=== PATIENT | male | born 1945 | race Caucasian/White ===

== ENCOUNTER → 2021-04-30 | Outpatient (CLI) | payer OTHER | END | disposition home or self-care (01) | LOC: LABPAT 09:40 | PROVIDERS: ATTEND Orthopaedic Surgery | DX: Z01.812 Encounter for preprocedural laboratory examination (principal); M16.11 Unilateral primary osteoarthritis, right hip; Z22.322 Carrier or suspected carrier of Methicillin resistant Staphylococcus aureus | CPT/HCPCS: 87070 ==

== ENCOUNTER 2021-05-07 13:50 | Day surgery (SDC) | payer OTHER ==
[2021-05-03 11:50] VITALS: BMI 35.9
--- NOTE | 2021-05-06 12:13 | HP ---
HISTORY AND PHYSICAL DATE OF SURGERY: 05/07/2021 HISTORY OF PRESENT ILLNESS: Jason Snyder is a 75-year-old gentleman seen with symptomatic right hip osteoarthritis. We discussed options for treatment. He elected to proceed with right total hip arthroplasty. Consent was obtained. Medical clearance was provided by Dr. Stephens. PAST MEDICAL HISTORY: Atrial fibrillation, hyperlipidemia, hypertension. PAST SURGICAL HISTORY: Vasectomy. DAILY MEDICATIONS: Lisinopril, pravastatin, triamcinolone, Valium. ALLERGIES: PENICILLIN. SOCIAL HISTORY: Denies tobacco use. PHYSICAL EXAMINATION: Evaluation of the right hip, there is diffuse tenderness, very limited range of motion, severe pain. Hip impingement sign is positive. Straight leg raise is negative. His distal neurovascular exam is intact. RADIOGRAPHS: Right hip radiographs revealed severe osteoarthritic changes. IMPRESSION: 1. Right hip osteoarthritis. 2. Atrial fibrillation. 3. Hypertension. PLAN: Direct anterior right total hip arthroplasty. MMODL / IJN: [id number] /
[~2021-05-07 13:50] MED LIST: ACETAMINOPHEN TAB 500 MG TAB PO PRN; HYDROmorphone 0.5 MG/0.5 ML SYRINGE IVP PRN; LIDOCAINE 1% (10MG/ML) FOR IV START INTRADERMA PRN; MELOXICAM 7.5 MG TAB PO PRN; MIDAZOLAM 2 MG/2 ML VIAL IV PRN; ONDANSETRON 4 MG/2 ML VIAL IVP PRN; TRANEXAMIC ACID 1,000 MG in SODIUM CHLORIDE 0.9% 100 ML IVPB PRN; ceFAZolin 3 GM in SODIUM CHLORIDE 0.9% 100 ML IVPB PRN
[2021-05-07] MEDS: LACTATED RINGERS 1,000 ML IV SCH ×3 (14:48→20:52)
[2021-05-07] MEDS: DEXAMETHASONE SOD PHOSPHATE 4 MG/ML 1 ML VIAL IV ONE ×2 (14:59→23:34)
[2021-05-07] MEDS: ONDANSETRON 4 MG/2 ML VIAL IVP ONE ×2 (15:00→21:11)
[2021-05-07] MEDS ORDERED: MIDAZOLAM 2 MG/2 ML VIAL ONE (16:22)
[2021-05-07] MEDS ORDERED: fentaNYL (PF) 50 MCG/ML 2 ML AMP ONE (16:22)
[2021-05-07] MEDS ORDERED: PROPOFOL 10 MG/ML 20 ML VIAL IV ONE (16:22)
[2021-05-07] MEDS ORDERED: SODIUM CHLORIDE 0.9% 100 ML BAG ONE (16:22)
[2021-05-07] MEDS ORDERED: TRANEXAMIC ACID 1,000 MG/10 ML VIAL ONE (16:22)
[2021-05-07] MEDS ORDERED: ePHEDrine SULFATE/0.9% NACL/PF 50 MG/5 ML SYRINGE IV ONE (16:22)
[2021-05-07] MEDS ORDERED: ceFAZolin 1,000 MG in SODIUM CHLORIDE 0.9% 1,000 ML IRRIGATION ONE (16:56)
[2021-05-07] MEDS: ROPIVACAINE/EPI/CLONIDINE/KET 50 ML SYRINGE MISCELLANE PRN ×2 (16:57→17:50)
--- NOTE | 2021-05-07 18:07 | XR ---
EXAMINATION TYPE: XR Hip Limited RT DATE OF EXAM: 05/07/2021 COMPARISON: NONE HISTORY: Hip surgery TECHNIQUE: Single view FINDINGS: 18 seconds of fluoroscopy time was recorded. A single fluoroscopic image was obtained of th e right hip that shows hip prosthesis in anatomic position. IMPRESSION: No complicating process seen.
[2021-05-07] MEDS ORDERED: NALOXONE 0.4 MG/ML 1 ML VIAL IV PRN (18:14)
[2021-05-07] MEDS ORDERED: HYDROmorphone 0.5 MG/0.5 ML SYRINGE IVP PRN ×2 (18:14)
[2021-05-07] MEDS ORDERED: ONDANSETRON 4 MG/2 ML VIAL IVP PRN (18:14)
[2021-05-07] MEDS ORDERED: HYDROmorphone 0.2 MG/1 ML SYRINGE IVP PRN (18:14)
[2021-05-07] MEDS ORDERED: HYDROcodone/APAP 5-325MG 1 EACH TAB PO PRN (18:14)
--- NOTE | 2021-05-07 18:14 | P.OP ---
Date of Procedure: 05/07/21 Preoperative Diagnosis: Right hip osteoarthritis Postoperative Diagnosis: Right hip osteoarthritis Procedure(s) Performed: Direct anterior right total hip arthroplasty Implants: 1. Depuy [place] size 14 135 standard collared press-fit femoral stem 2. Depuy [place] 60 mm multi hole press-fit acetabular shell 3. Depuy [place] neutral polyethylene acetabular liner 36 mm ID 60 mm OD 4. Biolox delta ceramic femoral head +5 36 mm Anesthesia: local, spinal Surgeon: Óscar Santiago Clerk Stenographer #1: Davide Scott Estimated Blood Loss (ml): 95 Pathology: other (Femoral head) Condition: stable Indications for Procedure: 75-year-old gentleman seen with symptomatic right hip osteoarthritis. After treatment options were discussed, he elected to proceed with direct anterior right total hip arthroplasty. Operative Findings: See description of procedure Description of Procedure: The patient was taken to the operative suite. Patient underwent a spinal anesthetic by the department of anesthesia. Patient was then transferred to the [place] table. Patient was given preoperative IV antibiotics and TXA. Both lower extremities were placed in standard leg spars. The hip was then prepped and angelique ped in the normal sterile orthopedic fashion. A standard anterior incision was made beginning 3 cm lateral and 1 cm distal to the ASIS extending 10 cm. Dissection was then carried down through the subcutaneous soft tissues down to the fascia overlying the tensor fascia zhen. An incision was now made through the fascia. Careful dissection was taken down exposing the tensor fascia zhen muscle. A Cobra retractor was now placed along the medial femoral neck and a second one along the lateral femoral neck. The venous circumflex vessels were now identified, cauterized and clipped. We identified the anterior hip capsule. An incision was made through the hip capsule along the lateral border. I performed a partial anterior capsulectomy. Retractors were now placed around the femoral neck itself. A femoral neck cut was now made with a sagittal saw. It was completed with an osteotome at the lateral neck area. The femoral head was now removed without difficulty. The extremity was now rotated to 60 of external rotation. It was locked in position. Residual labrum was now debrided out. Serial reaming was performed of the acetabulum while Nickolas MURPHY assisted holding an anterior retractor for exposure. Once we reached the appropriate size and a trial was position and fit nicely. The appropriate size was now chosen opened and made available. It was introduced into the acetabulum without difficulty. The C-arm/fluoroscopy was now brought into the operative field. We made sure we had a true AP pelvic view. We now under direct C- arm/fluoroscopy introduced into the acetabular component with appropriate version and inclination. I held the cup in appropriate position well Nickolas MURPHY used a mallet to seat the acetabular component. I noted the component now to be well seated and stable. Acetabular cup introduce her was removed. The C-arm was pulled back. An appropriate liner was introduced and clicked into position. It was felt to be stable. At this point retractors were removed. The extremity was now placed into 140 external rotation with no traction. The leg was now dropped to the ground and adducted. Appropriate retractors were now positioned along the proximal femur. We also placed our femoral look into position. Additional capsular releasing was performed to gain access to the proximal femur. We now used a box osteotome. A canal finder was now utilized. Serial broaching was now performed with the assistance of Nickolas MURPHY tapping the broaches down with a mallet while held the broach in appropriate rotation and position. This was done until we reached the appropriate size with good overall rotational stability. Appropriate calcar planing was performed. A trial head/neck was placed into position. The hip was now reduced. The C- arm/fluoroscopy was brought back into the operative field. I obtained an AP pelvis demonstrate a reasonable leg length alignment. The trial components appear to be well-positioned and appropriately sized. The C-arm/fluoroscopy was pulled back. Retractors were repositioned and the hip was dislocated. The leg was again taken down to the ground and adducted. Appropriate retractors were repositioned as well as the femoral hook. All trial components were removed. The femoral implant was opened along with the femoral head. The femoral implant was introduced on the appropriate handle into our pre-broached area. I held the component position well Nickolas MURPHY used a mallet to seat the femoral component. The femoral component was now noted to be well seated and stable.. The femoral head was introduced with good positioning and fixation noted. Retractors were now removed. The hip was now reduced. There appeared be good positioning of the hip confirmed on intraoperative fluoroscopy. Spot films were obtained to document this. A second gram of TXA was given. The deep and superficial soft tissues were infiltrated with local analgesic. Bipolar cautery had been utilized intermittently through the procedure for hemostasis. The wound was irrigated copiously with pulse lavage mechanical irrigation. The fascia was repaired with Vicryl suture. The subcutaneous soft tissues were repaired in layers with Vicryl suture. The skin was approximated with pernio/Dermabond. Sterile dressings were applied. Patient was then awakened, transferred to a bed and taken to recovery in stable condition. Nickolas MURPHY assisted with the complex procedure.
[2021-05-07 18:30] VITALS: RESP 16
[2021-05-07] MEDS ORDERED: SODIUM CHLORIDE 0.9% 1,000 ML IV ONE (18:57)
[2021-05-07] MEDS ORDERED: SENNOSIDES-DOCUSATE SODIUM 1 EACH TAB PO SCH (21:00)
[2021-05-07] MEDS: HYDROcodone/APAP 5-325MG 1 EACH TAB PO PRN (21:10)
[2021-05-08] MEDS: ceFAZolin 3 GM in SODIUM CHLORIDE 0.9% 100 ML IVPB SCH ×2 (00:09→09:45)
--- NOTE | 2021-05-08 00:14 | P.CONS ---
History of Present Illness - Reason for Consult Consult date: 05/08/21 - History of Present Illness Patient is a 74-year-old male with a PMH of A. fib not on anticoagulation, hypertension, hyperlipidemia, and BPH who was admitted to the hospital for an elective right total hip replacement. The patient underwent the procedure uneventfully earlier today and was seen postoperatively on the surgical unit. There were no immediate postoperative complications reported. Patient was seen at the bedside and notes continued 5 out of 5 right hip pain. He has not been out of bed yet and hadn't passed flatus or urine. He reported mild bilateral lower extremity tingling. Denied visual complaints. He denied chest discomfort, she was with, fever, cough, sore throat. Denied abdominal pain, nausea, vomiting, diarrhea. He reports compliance with his medications at home. Review of systems: Pertinent positives and negatives as discussed in HPI, a complete review of systems was performed and all other systems are negative. Physical examination: General: non toxic, no distress, appears at stated age, obese Derm: no unusual rashes/lesions no unusual ecchymoses, warm, dry Head: atraumatic, normocephalic, symmetric Eyes: EOMI, no lid lag, anicteric sclera, pupils equal round reactive to light ENT: Nose and ears atraumatic, no thrush, no pharyngeal erythema Neck: No thyromegaly, no cervical lymphadenopathy, trachea midline, supple Mouth: no lip lesion, mucus membranes moist Cardiovascular: S1S2 reg, no murmur, positive posterior tibial pulse bilateral, no edema, capillary refill less than 2 seconds Lungs: CTA bilateral, no rhonchi, no rales , no accessory muscle use Abdominal: soft, nontender to palpation, no guarding, no appreciable organomegaly, normal bowel sounds Ext: no gross muscle atrophy, muscle strength 5 out of 5 in all extremities grossly except right lower extremity postoperatively, right lower extremity distal strength 5 out of 5 no contractures Neuro: CN II-XI grossly intact, light touch intact all 4 extremities, finger to nose within normal limits, Psych: Alert, oriented, appropriate affect Assessment/plan Chronic conditions: Hypertension, hyperlipidemia, BPH, paroxysmal A. 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 Past Anesthesia/Blood Transfusion Reactions: Motion Sickness Smoking Status: Former smoker - Past Family History Mother Family Medical History: Hypertension Medications and Allergies Home Medications Medication Instructions Recorded Confirmed Type Acetaminophen [Tylenol Arthritis] 650 mg PO DIRECTED PRN 05/03/21 05/07/21 History Ascorbic Acid [Vitamin C] 500 mg PO DAILY 05/03/21 05/07/21 History Cholecalciferol [Vitamin D3 (25 25 mcg PO DAILY 05/03/21 05/07/21 History Mcg = 1000 Iu)] Diltiazem HCl [Diltiazem HCl 24Hr 180 mg PO DAILY 05/03/21 05/07/21 History ER (CD)] Finasteride [Proscar] 5 mg PO DAILY 05/03/21 05/07/21 History Glucos Sul 2Kcl/MSM/Chond/C/Mn 1 each PO BID 05/03/21 05/07/21 History [Glucosamine Chondroitin Cap] Ibuprofen 600 mg PO BID PRN 05/03/21 05/07/21 History Magnesium 250 mg PO BID 05/03/21 05/07/21 History Multivitamins, Thera [Multivitamin 1 tab PO DAILY 05/03/21 05/07/21 History (formulary)] Potassium Gluconate 99 mg PO BID 05/03/21 05/07/21 History Pravastatin Sodium [Pravachol] 80 mg PO HS 05/03/21 05/07/21 History Sildenafil Citrate [Viagra] 25 mg PO DIRECTED PRN 05/03/21 05/07/21 History Tamsulosin HCl [Flomax] 0.8 mg PO DAILY 05/03/21 05/07/21 History Turmeric Root Extract [Turmeric] 500 mg PO DAILY 05/03/21 05/07/21 History Vitamin E (Dl,Tocopheryl Acet) 400 unit PO DAILY 05/03/21 05/07/21 History [Vitamin E (400 Iu = 180 mg)] lisinopriL [Zestril] 5 mg PO DAILY 05/03/21 05/07/21 History Allergies Allergy/AdvReac Type Severity Reaction Status Date / Time Penicillins Allergy Itching Verified 05/07/21 14:11 antibiotic-can not remember Allergy Unknown Uncoded 05/07/21 14:11 name Physical Exam Vitals: Vital Signs Temp Pulse Pulse Resp BP Pulse Ox 05/07/21 19:15 68 16 122/59 98 05/07/21 19:01 69 16 111/55 98 05/07/21 18:45 66 16 115/53 98 05/07/21 18:33 91 16 117/59 98 05/07/21 18:26 97 F L 85 16 119/58 98 05/07/21 14:21 97.3 F L 77 20 140/69 94 L Intake and Output 05/07/21 05/07/21 05/07/21 06:59 14:59 22:59 Intake Total 1051 Output Total 95 Balance 956 Intake: IV 1051 Output: Estimated Blood Loss 95 Other: Weight 124.9 kg
[2021-05-08] MEDS ORDERED: PRAVASTATIN SODIUM 80 MG TAB PO SCH (00:15)
[2021-05-08] MEDS: HYDROcodone/APAP 5-325MG 1 EACH TAB PO PRN ×2 (03:15→09:44)
[2021-05-08] MEDS: LACTATED RINGERS 1,000 ML IV SCH ×2 (07:15→09:02)
[2021-05-08 07:45] VITALS: BP 136/74; PULSE 74; TEMP 98.3
--- NOTE | 2021-05-08 08:08 | FL ---
Fluoroscopy INDICATION: Pain FINDINGS: Fluoroscopy time: 18 seconds. Images obtained: 1. IMPRESSIONS: 1. Documentation of fluoroscopy.
[2021-05-08] MEDS ORDERED: MELOXICAM 7.5 MG TAB PO SCH (09:00)
[2021-05-08] MEDS ORDERED: FAMOTIDINE 20 MG TAB PO SCH (09:00)
[2021-05-08] MEDS ORDERED: DILTIAZEM CD 180 MG CAP.ER.24H PO SCH (09:00)
[2021-05-08] MEDS ORDERED: FINASTERIDE 5 MG TAB PO SCH (09:00)
[2021-05-08] MEDS ORDERED: TAMSULOSIN 0.4 MG CAP.ER.24H PO SCH (09:00)
[2021-05-08] MEDS ORDERED: ENOXAPARIN 40 MG/0.4 ML SYRINGE SQ SCH (09:00)
[2021-05-08] MEDS ORDERED: lisinopriL 5 MG TAB PO SCH (09:00)
--- NOTE | 2021-05-08 09:41 | P.PN ---
Subjective Progress Note Date: 05/08/21 Principal diagnosis: hip pain Patient is a 74-year-old male with a past medical history of paroxysmal A. fib, currently maintained in normal sinus rhythm and no longer requires anticoagulation, dyslipidemia, and BPH was admitted to the hospital for elective right total hip replacement. He tolerated the procedure well without any immediate postoperative complications. Patient seen and examined at bedside. He has been up and walking this morning and doing well. He is anxious to go home. He denies any chest pain, shortness breath, nausea, or vomiting. General: non toxic, no distress, appears at stated age Derm: warm, dry Head: atraumatic, normocephalic, symmetric Eyes: EOMI, no lid lag, anicteric sclera Mouth: no lip lesion, mucus membranes moist Cardiovascular: S1S2 reg, no murmur, positive posterior tibial pulse bilateral, Lungs: CTA bilateral, no rhonchi, no rales , no accessory muscle use Abdominal: soft, nontender to palpation, no guarding, no appreciable organomegaly Ext: no gross muscle atrophy, trace edema, no contractures Neuro: CN II-XI grossly intact, no focal neuro deficits Psych: Alert, oriented, appropriate affect Patient is a 75-year-old male status post right total hip replacement by orthopedic surgery Hypertension -controlled -Continue with Cardizem and lisinopril Dyslipidemia -Continue statin Paroxysmal A. fib currently maintained in normal sinus rhythm not on chronic anticoagulation -Continue with Cardizem -DVT prophylaxis as deemed appropriate per orthopedic surgery as patient is not on long-term anticoagulation. BPH -Flomax Thank you for allowing us to proceed care of this patient. Patient is medically optimized for discharge at the discretion of orthopedic surgery if hemoglobin comes back greater than 9. Med rec has been addressed. Objective - Vital Signs Vital signs: Vital Signs Temp 98.3 F 05/08/21 07:44 Pulse 74 05/08/21 07:44 Resp 16 05/08/21 07:44 BP 136/74 05/08/21 07:44 Pulse Ox 95 05/08/21 07:44 Intake & Output 05/07/21 05/08/21 05/08/21 18:59 06:59 18:59 Intake Total 1051 Output Total 95 500 Balance 956 -500 Weight 124.9 kg Intake: IV 1051 Output: Urine 500 Estimated Blood Loss 95 Other: Voiding Method Toilet # Voids 1
--- NOTE | 2021-05-08 12:16 | P.DS ---
Providers Date of admission: 05/07/2021 Expected date of discharge: 05/08/21 Attending physician: Óscar Santiago Consults: 05/07/21 18:14 Consult Physician Routine Consulting Provider: Lyric Cordero Consult Reason/Comments: Medical management Do you want consulting provider notified?: Yes Primary care physician: Serafin Stephens MD Hospital Course: Date of admission: 05/07/2021 Date of discharge: 05/08/2021 Admission diagnosis: Right hip osteoarthritis Discharge diagnosis: Same Attending physician: Dr. Santiago Surgical procedures: Right total hip arthroplasty Brief history: Patient is a 75-year-old male with a history of progressive primary right hip osteoarthritis. At this point patient has failed conservative treatment measures and has opted to proceed with a elective right total hip arthroplasty. Hospital course: Details of patient's surgery can be found in operative report. Patient tolerated the procedure well and was subsequently transported to orthopedic floor. Patient's orthopeidc and medical care was provided daily. Patient had daily laboratory tests performed for evaluation of overall blood co unts . Patient had daily physical therapy to include strengthening range of motion as well as education with walker ambulation. Patient was treated with Lovenox for their postoperative DVT prophylaxis during their inpatient stay. Patient was noted to have a relatively uneventful postoperative course. Patient reported satisfactory pain control with oral pain medications by postoperative day 1. Patient showed satisfactory progress with physical therapy. Patient moved steadily through the program and had no difficulty meeting the goals by postoperative day 1. Given patient's otherwise satisfactory course and having met physical therapy goals, plan is to discharge patient home on postoperative day 1. Discharge condition/disposition: Patient will be discharged home in stable condition. Discharge medications: Instructions are given on resumption of patient's normal daily medications per primary care recommendation, in addition patient will be prescribed Lyrica 75 mg; Aspirin 81 mg BID; Colace. Discharge instructions: 1. Wound care and infection precautions keep incision dry and covered while showerig, no lotions, creams, moisturizers. No soaking, tubs, pools, hottubs. Do not scrub over the incision. 2. Weight-king [as toleratd] with walker / cane until follow-up. 3. Ice and elevate when necessary. Do not exceed 20 minutes per hour with ice pack. 4. Utilize compression sleeve until seen at first follow up appointment. 5. Visiting nursing care. 6. Home physical therapy. 7. Pain meds and anticoagulants per prescription. 8. Pain medication has potential to cause constipation. Increase oral fluid and fiber intake. Contact primary care provider if you have not had a bowel movement within 48 hours after discharge 9. No anti-inflammatory medication until discussed at first post operative visit, this including Motrin, Aleve, Mobic, Diclofenac. 10. Follow up in office at 2 weeks postop with Nickolas Scott PA-C / Jt Sol PA-C 11. Follow up with your primary care doctor 7-10 days after discharge. 12. Contact [facility] with any questions, . Assessment: Right hip osteoarthritis Procedures: Right total hip arthroplasty Patient Condition at Discharge: Good Plan - Discharge Summary Discharge Rx Participant: Yes New Discharge Prescriptions: New Docusate [Colace] 100 mg PO DAILY #30 capsule Aspirin [Adult Low Dose Aspirin EC] 81 mg PO BID #60 tablet. Pregabalin [Lyrica] 75 mg PO BID #21 cap No Action Finasteride [Proscar] 5 mg PO DAILY Diltiazem HCl [Diltiazem HCl 24Hr ER (CD)] 180 mg PO DAILY Glucos Sul 2Kcl/MSM/Chond/C/Mn [Glucosamine Chondroitin Cap] 1 each PO BID Vitamin E (Dl,Tocopheryl Acet) [Vitamin E (400 Iu = 180 mg)] 400 unit PO DAILY Turmeric Root Extract [Turmeric] 500 mg PO DAILY Ascorbic Acid [Vitamin C] 500 mg PO DAILY Ibuprofen 600 mg PO BID PRN PRN Reason: Pain Tamsulosin HCl [Flomax] 0.8 mg PO DAILY Pravastatin Sodium [Pravachol] 80 mg PO HS lisinopriL [Zestril] 5 mg PO DAILY Sildenafil Citrate [Viagra] 25 mg PO DIRECTED PRN PRN Reason: erectile dysfunction Multivitamins, Thera [Multivitamin (formulary)] 1 tab PO DAILY Potassium Gluconate 99 mg PO BID Magnesium 250 mg PO BID Cholecalciferol [Vitamin D3 (25 Mcg = 1000 Iu)] 25 mcg PO DAILY Acetaminophen [Tylenol Arthritis] 650 mg PO DIRECTED PRN PRN Reason: Pain Discharge Medication List Acetaminophen [Tylenol Arthritis] 650 mg PO DIRECTED PRN 05/03/21 [History] Ascorbic Acid [Vitamin C] 500 mg PO DAILY 05/03/21 [History] Cholecalciferol [Vitamin D3 (25 Mcg = 1000 Iu)] 25 mcg PO DAILY 05/03/21 [History] Diltiazem HCl [Diltiazem HCl 24Hr ER (CD)] 180 mg PO DAILY 05/03/21 [History] Finasteride [Proscar] 5 mg PO DAILY 05/03/21 [History] Glucos Sul 2Kcl/MSM/Chond/C/Mn [Glucosamine Chondroitin Cap] 1 each PO BID 05/03/21 [History] Ibuprofen 600 mg PO BID PRN 05/03/21 [History] Magnesium 250 mg PO BID 05/03/21 [History] Multivitamins, Thera [Multivitamin (formulary)] 1 tab PO DAILY 05/03/21 [History] Potassium Gluconate 99 mg PO BID 05/03/21 [History] Pravastatin Sodium [Pravachol] 80 mg PO HS 05/03/21 [History] Sildenafil Citrate [Viagra] 25 mg PO DIRECTED PRN 05/03/21 [History] Tamsulosin HCl [Flomax] 0.8 mg PO DAILY 05/03/21 [History] Turmeric Root Extract [Turmeric] 500 mg PO DAILY 05/03/21 [History] Vitamin E (Dl,Tocopheryl Acet) [Vitamin E (400 Iu = 180 mg)] 400 unit PO DAILY 05/03/21 [History] lisinopriL [Zestril] 5 mg PO DAILY 05/03/21 [History] Aspirin [Adult Low Dose Aspirin EC] 81 mg PO BID #60 tablet. 05/08/21 [Rx] Docusate [Colace] 100 mg PO DAILY #30 capsule 05/08/21 [Rx] Pregabalin [Lyrica] 75 mg PO BID #21 cap 05/08/21 [Rx] Follow up Appointment(s)/Referral(s): [facility], [NON-STAFF] - ([facility] will call you to arrange the time for your first visit on 05/09/21.) Davide Scott PAC [PHYSICIAN NEEDLE MAKER] - 2 Weeks Activity/Diet/Wound Care/Special Instructions: Orthopedic Discharge Instructions: 1. Wound care and infection precautions, keep incision dry and covered while showering, no lotions, creams, moisturizers. No soaking, pools, hot tubs. Do not scrub over incision. 2. Weight-bear as tolerated with walker / cane until follow-up. 3. Ice and elevate when necessary. Do not exceed 20 minutes per hour with ice pack. 4. Utilize compression sleeve until seen at first follow up appointment. 5. Pain meds and anticoagulants per prescription. 6. Pain medication has potential to cause constipation. Increase oral fluid and fiber intake. Contact primary care provider if you have not had a bowel movement within 48 hours after discharge. 7. No anti-inflammatory medication until discussed at first post operative visit, this including Motrin, Aleve, Mobic, Diclofenac. 8. Follow up in office at 2 weeks postop with Nickolas Scott PA-C / Jt Sol PA-C 9. Follow up with your primary care doctor 7-10 days after discharge. 10. Contact [facility] with any questions, . Please keep silver foam dressing on for 7-10 days. While showering, use Saran wrap on dressing. Dressing may be removed after 7-10 days. Discharge Disposition: HOME WITH HOME HEALTH SERVICES
[2021-05-08 12:53] LABS: Basophils # (A) 0.01 X 10*3/uL (0.00-0.10); Basophils % (A) 0.1 %; Eosinophils # (A) 0 X 10*3/uL (0.04-0.35); Eosinophils % (A) 0 %; HCT 37.4 % (39.6-50.0); HGB 12.6 g/dL (13.0-17.0); Lymphocytes # (A) 0.55 X 10*3/uL (0.90-5.00); Lymphocytes % (A) 4.2 %; MCH 32.9 pg (27.0-32.0); MCHC 33.7 g/dL (32.0-37.0); MCV 97.7 fL (80.0-97.0); Mean Platelet Volume 10.4 fL (9.5-12.2); Monocytes # (A) 1.07 X 10*3/uL (0.20-1.00); Monocytes % (A) 8.1 %; Neutrophils # (A) 11.46 X 10*3/uL (1.80-7.70); Neutrophils % (A) 87.2 %; Platelet Count 210 X 10*3/uL (140-440); RBC 3.83 X 10*6/uL (4.40-5.60); RDW 13.1 % (11.5-14.5); WBC 13.14 X 10*3/uL (4.50-10.00)
--- NOTE | 2021-05-08 12:58 | P.PN ---
Subjective Progress Note Date: 05/08/21 Principal diagnosis: Right hip osteoarthritis Patient was seen at bedside this morning. Patient was in room sitting up in chair. Patient says he is ready to go home today and says his hip is doing well. He says he is not in any pain while sitting or lying in bed. He says he has some pain after walking or physical therapy, but is minimal. Patient says physical therapy went well this morning as he walked in the hallway and up and down steps. Patient does say he lives at home with his and there is a few steps to the house that is one story. Patient says he has been using incentive spirometer throughout the morning. Patient says he has been passing gas, but has not had a bowel movement yet. Patient denies chest pain, fever, shortness breath, nausea, vomiting, change in vision, loss of bowel/bladder control, saddle anesthesia. Objective - Vital Signs Vital signs: Vital Signs Temp 98.3 F 05/08/21 07:44 Pulse 74 05/08/21 07:44 Resp 16 05/08/21 07:44 BP 136/74 05/08/21 07:44 Pulse Ox 95 05/08/21 07:44 Intake & Output 05/07/21 05/08/21 05/08/21 18:59 06:59 18:59 Intake Total 1051 Output Total 95 500 Balance 956 -500 Weight 124.9 kg Intake: IV 1051 Output: Urine 500 Estimated Blood Loss 95 Other: Voiding Method Toilet # Voids 1 - Exam Right hip: Incision is clean, dry, and intact. The silver foam dressing is in good condition. There is minimal soft tissue swelling and ecchymosis surrounding the medial and lateral aspects of the incision. Calf is soft, no tenderness with palpation. Plantar flexion, dorsiflexion, EHL, FHL are intact. Sensory exam to light touch throughout the extremity is intact, dorsal pedis pulses 2+. - Labs CBC & Chem 7: 05/08/21 05:42 Assessment and Plan Assessment: Right hip osteoarthritis Plan: 1. Right hip osteoarthritis- right total hip arthroplasty performed yesterday, 05/07/2021. Patient stable this morning; plan for discharge home today 2. Pain management - stable at this time ; going home with Lyrica 75 mg 3. Appreciate medical management 4. DVT ppx/GI ppx Lovenox and senna in hospital. Going home with aspirin and Colace 5. Encourage incentive spirometer use 6. PT/OT- weightbearing as tolerated with walker for assistance 7. Discharge planning - plan to discharge home today, 05/08/2021 Time with Patient: Less than 30
== END 2021-05-08 13:39 | disposition home health service (06) ==
LOC: OR 13:50 → 4SSUR 18:10 → OR 05-08 13:39
PROVIDERS: ATTEND Orthopaedic Surgery
DX: M16.11 Unilateral primary osteoarthritis, right hip (principal); I48.0 Paroxysmal atrial fibrillation; E78.5 Hyperlipidemia, unspecified; E66.9 Obesity, unspecified; Z68.35 Body mass index [BMI] 35.0-35.9, adult; Z98.52 Vasectomy status; I10 Essential (primary) hypertension; N40.0 Benign prostatic hyperplasia without lower urinary tract symptoms; M19.90 Unspecified osteoarthritis, unspecified site; K21.9 Gastro-esophageal reflux disease without esophagitis; Z87.891 Personal history of nicotine dependence; Z87.442 Personal history of urinary calculi; Z82.49 Family history of ischemic heart disease and other diseases of the circulatory system; Z79.1 Long term (current) use of non-steroidal anti-inflammatories (NSAID); Z79.82 Long term (current) use of aspirin; Z79.899 Other long term (current) drug therapy; Z88.0 Allergy status to penicillin
CPT/HCPCS: 97161; 86900; 86901; 85025; 86850; 88300; 73501; 36415; 27130; C1776; S0138; J2250; J1100; J0690 ×3; J2405; J1650; J3010; J2704; J1170